=== PATIENT | male | born 1975 | race Caucasian/White ===

== ENCOUNTER → 2018-07-19 12:16 | Outpatient (CLI) | payer OTHER, SELFPAY ==
[2018-07-19 14:41] LABS: AST(SGOT) 17 U/L (15-37); Alanine Aminotransfer ALT/SGPT 38 U/L (16-61); Albumin, Serum 3.7 g/dL (3.2-5.0); Alkaline Phosphatase 110 U/L (45-117); Anion Gap 11 (5-15); BUN 16 mg/dL (7-18); Bilirubin, Direct 0.15 mg/dL (0.00-0.30); Chloride 101 mmol/L (98-107); Cholesterol 236 mg/dL (200); Creatinine, Serum 1.23 mg/dL (0.70-1.30); EST Glomerular Filtration Rate 68 mL/min (>60); Est Glom Filt Rate - Afr Amer 82 mL/min (>60); Globulin 4.1 g/dL (2.2-4.2); Glucose 289 mg/dL (74-106); High Density Lipoprotein 51 mg/dL; Protein, Total 7.8 g/dL (6.4-8.2); Sodium Level 133 mmol/L (136-145); Thyroid Stim Hormone (TSH) 1.27 uIU/mL (0.358-3.74); Triglycerides 170 mg/dL; Very Low Density Lipoprotein 34 mg/dL (5-40)
--- OUTSIDE RECORDS SUMMARY | 2018-09-04 07:24 | XMS RPT_ITS ---
:1975 Author Organization [facility] Care Team Providers Name Role Phone Chalino Segovia Attending Unavailable Chalino Segovia Primary Care Unavailable PROBLEMS PROBLEMS No Problem Records FoundPROCEDURES PROCEDURES No Procedure Records FoundRESULTS RESULTS TESTOSTERONE, SERUM TOTAL Collected: 07/19/2018 Status: F Source: [place] 12:19 PM [facility] REPOSITORY TYPE CODE TESTS RESULT OUT OF REFERENCE UNITS RANGE LAB L509.3000 ng/dL Testosterone Normal 217.02 Result Comment: NORMAL REFERENCE RANGES MALE AGE <50 123.06 - 813.86 ng/dL MALE AGE >50 89.98 - 780.10 ng/dL FEMALE PREMENOPAUSE AGE 21 - 60 9.01 - 47.94 ng/dL FEMALE POSTMENOPAUSE AGE 45 - 89 <7.00 - 45.62 ng/dL REFERENCE RANGE AND METHODOLOGY CHANGED 07/26/2017 Performed By: #### L509.3000 #### [facility] [place], [address] BASIC METABOLIC Collected: 07/19/2018 Status: F Source: [place] PROFILE (BMP) 12:19 PM [facility] REPOSITORY TYPE CODE TESTS RESULT OUT OF RANGE REFERENCE UNITS LAB L501.0100 74-106 mg/dL High GLU 289 Result Comment: Glucose result greater than or equal to 200 mg/dL suggests DIABETES MELLITUS per A.D.A. criteria. Please note revised GLUCOSE reference range effective 2017. LAB L501.1000 7-18 mg/dL Normal BUN 16 LAB L501.1100 0.70-1.30 mg/dL Normal CREAT,SERUM 1.23 Result Comment: The validity of the calculated GFR AND GFRAA in patients over 70 years has not been determined. Clinical correlation is essential. LAB L501.1110 >60 mL/min Normal EST GFR 68 Result Comment: Non- GFR Calc LAB L501.1115 >60 mL/min Normal EST GFR - AA 82 Result Comment: GFR Calc LAB L501.1300 10-20 RATIO Normal BUN/CRE 13.0 LAB L501.2200 8.5-10.1 mg/dL CA Normal 9.0 LAB L501.5300 136-145 mmol/L Low NA 133 LAB L501.5600 3.5-5.1 mmol/L K Normal 4.0 LAB L501.5900 98-107 mmol/L CL Normal 101 LAB L501.6100 21.0-32.0 mmol/L Normal CO2 21.0 LAB L501.6200 5-15 Normal GAP 11 Performed By: #### L500.2500, L500.3400, L500.4100, L501.9520 #### [facility] [address] [place], [place], [id number] LIVER PROFILE Collected: 07/19/2018 Status: F Source: [place] 12:19 PM [facility] REPOSITORY TYPE CODE TESTS RESULT OUT OF RANGE REFERENCE UNITS LAB L501.1500 6.4-8.2 g/dL Normal T PROT 7.8 LAB L501.1800 3.2-5.0 g/dL Normal ALB 3.7 LAB L501.1950 2.2-4.2 g/dL Normal GLOB 4.1 LAB L501.4100 15-37 U/L Normal AST 17 LAB L501.4305 45-117 U/L Normal ALK P 110 LAB L501.4405 16-61 U/L Normal ALT 38 LAB L501.4600 0.20-1.00 mg/dL Normal T BILI 0.70 LAB L501.4700 0.00-0.30 mg/dL Normal D BILI 0.15 Performed By: #### L500.2500, L500.3400, L500.4100, L501.9520 #### [facility] [address] [facility] [place], [address] LIPID PROFILE Collected: 07/19/2018 Status: F Source: [place] 12:19 PM [facility] REPOSITORY TYPE CODE TESTS RESULT OUT OF RANGE REFERENCE UNITS LAB L501.4900 200 mg/dL High CHOL 236 Result Comment: <200 mg/dL Desirable 200-240 mg/dL Borderline >240 mg/dL High Risk LAB L501.5000 mg/dL Normal TRIG 170 Result Comment: The drugs N-Acetylcysteine and Metamizole may falsely depress this assay. Serum Triglycerides Reference Interval Normal <150 mg/dL Borderline high 150 - 199 mg/dL High 200 - 499 mg/dL Very High > or = 500 mg/dL LAB L501.6400 mg/dL Normal HDL 51 Result Comment: The drugs N-Acetylcysteine and Metamizole may falsely depress this assay. Reference Range HDL <40 mg/dL Low HDL Cholesterol HDL >or= 60 mg/dL High HDL Cholesterol LAB L501.6500 0-130 mg/dL High LDL 151 LAB L501.6600 5-40 mg/dL Normal VLDL 34 Performed By: #### L500.2500, L500.3400, L500.4100, L501.9520 #### [facility] [address] [facility] [place], [address] THYROID STIM HORMONE Collected: 07/19/2018 Status: F Source: [place] (TSH) 12:19 PM [facility] REPOSITORY TYPE CODE TESTS RESULT OUT OF RANGE REFERENCE UNITS LAB L501.9520 0.358-3.74 uIU/mL Normal TSH 1.27 Performed By: #### L500.2500, L500.3400, L500.4100, L501.9520 #### [facility] [address] [facility] [place] [place], [address] ALLERGIES ALLERGIES No Allergies Records FoundENCOUNTERS ENCOUNTERS ADMIT/DISCHARGE ACCOUNT ADMITTING ENCOUNTER LOCATION SOURCE NUMBER CLASS 07/19/2018 [id number] Ambulatory [address] ing:MFPLAB Repository PAYERS PAYERS ENCOUNTER GUARANTOR PAYER SUBSCRIBER SOURCE 07/19/2018 MARBELLA WALKER1985 Primary Insurance:[facility] MARBELLA ESPINAL: [place] KRISTEL MCCRAY, *DO NOT USE*Policy [id number] [facility] [address]Fgm: Number: [facility] [id number] Repository (HP) Date:[id number] [address]KN: 07/19/2018 Secondary NOT GIVENUNK [place] Insurance:SELF PAY [facility] Number: Effective Repository Date:2018-07-19
== END ==
PROVIDERS: Family Provider Family Medicine; PCP Family Medicine; Visit Provider Family Medicine
DX: E11.9 Type 2 diabetes mellitus without complications (principal); N52.9 Male erectile dysfunction, unspecified
CPT/HCPCS: 36415; 80048; 80061; 80076; 84403; 84443

== ENCOUNTER → 2018-10-17 12:12 | Outpatient (CLI) | payer OTHER, SELFPAY ==
[2018-10-17 15:06] LABS: Anion Gap 10 (5-15); BUN 17 mg/dL (7-18); BUN/Creat Ratio 15.6 RATIO (10-20); Calcium,Total 9.1 mg/dL (8.5-10.1); Chloride 102 mmol/L (98-107); Creatinine, Serum 1.09 mg/dL (0.70-1.30); EST Glomerular Filtration Rate 78 mL/min (>60); Est Glom Filt Rate - Afr Amer 94 mL/min (>60); Glucose 259 mg/dL (74-106); Sodium Level 135 mmol/L (136-145)
== END ==
PROVIDERS: Family Provider Family Medicine; PCP Family Medicine; Referring Provider Family Medicine; Visit Provider Family Medicine
DX: E11.9 Type 2 diabetes mellitus without complications (principal)
CPT/HCPCS: 36415; 80048

== ENCOUNTER 2021-02-09 20:48 | Inpatient (IN) | payer OTHER, SELFPAY ==
[2021-02-09 20:49] VITALS: BP 200/129; PULSE 115; RESP 18; TEMP 37.1; O2SAT 95; BMI 27.9
[2021-02-09 20:58] VITALS: BP 217/127; PULSE 107; RESP 20; BMI 27.9
[2021-02-09 21:25] LABS: Bedside Glucose 322 mg/dL (70-110)
--- NOTE | 2021-02-09 21:29 | EKG12_ITS ---
Test Reason : CP Blood Pressure : / mmHG Vent. Rate : 102 BPM Atrial Rate : 102 BPM P-R Int : 154 ms QRS Dur : 102 ms QT Int : 340 ms P-R-T Axes : 046 -01 012 degrees QTc Int : 443 ms Sinus tachycardia Otherwise normal ECG Confirmed by MUSTAPHA NASCIMENTO, DOTTY ([id number]), book editor SWATHI BAILEY ([id number]) on 02/15/2021 4:19:54 PM Referred By: ANAHY Confirmed By:DOTTY LUCIANO MD
--- NOTE | 2021-02-09 21:29 | CT_ITS ---
STUDY: CT BRAIN WITHOUT CONTRAST REASON FOR EXAM: Male, 45 years old. left side weakness, paraesthesias RADIATION DOSAGE (If Supplied By Facility): CTDIvol = ( 44.99 ) mGy, DLP = ( 796.11 ) mGycm TECHNIQUE: Transaxial CT imaging of the brain was performed without administration of intravenous contrast material. Individualized dose optimization techniques were used for this CT. COMPARISON: No relevant priors. FINDINGS: Normal soft tissue structures. Normal calvarium. Several well-defined small areas of hypodensity in the right basal ganglia. Possibly related to prior stroke however, age indeterminate. There is no intracranial hemorrhage. Normal visualized paranasal sinuses. CT/Brain/Head without Contrast IMPRESSION: Small hypodensities in the right basal ganglia. Age indeterminant. If there is ongoing clinical concern for acute stroke, recommend MRI brain. Electronically Signed: Spencer Ramirez DO at 22:22 EDT Tel , Service support ,
--- NOTE | 2021-02-09 21:31 | EX.ED.DYSGE1 ---
HPI History of Present Illness Chief Complaint: Neuro S/Sx Detail of Chief Complaint: Left-sided weakness and paresthesias x5 days Informant: patient Narrative Narrative: Patient presents to the emergency department with multiple complaints today. Patient states that he woke up with paresthesias in his left hand and weakness in his left arm and left leg causing him to feel off balance. Patient denies any falls or head injuries. He denies headache. Patient has been drinking alcohol today and drinks daily. Patient normally drinks beer. He denies headache or neck pain. He denies any falls or head injuries. He denies fever or recent illness. Patient has history of diabetes, hypertension, high cholesterol. Prior similar symptoms: [facility] Medical History (Updated 02/09/21 @ 22:[address] Leela Del Rio, ) Alcohol abuse Diabetes Hypercholesteremia Hypertension Allergy/AdvReac Type Severity Reaction Status Date / Time Penicillins Allergy Other Verified 02/09/21 20:51 Social History Smoking Status: Never smoker ROS [facility] ED Constitutional Constitutional ED: Reports systems reviewed and no addt'l complaints, except as documented; Denies body ache(s), change in weight or chills Eyes Eyes: Denies acute decrease in peripheral vision, change in vision, double vision or loss of vision ENT ENT ED: Reports none; Denies ear pain, lip swelling, loss taste/smell, neck pain, otalgia or sore throat Cardiovascular Cardiovascular: Reports none and chest pain; Denies abdominal pain, chest pain with activity, leg edema, lightheadedness, palpitations, rapid heart rate or syncope Respiratory/Chest Respiratory/Chest: Reports none; Denies change in mental status, dry cough, dyspnea, hemoptysis, shortness of breath at rest or shortness of breath with exertion Gastrointestinal Gastrointestinal: Reports none; Denies abdominal pain, change in stool character, diarrhea, hematemesis, hematochezia, melena, rectal bleeding or vomiting Genitourinary Genitourinary ED: Reports none; Denies abdominal discomfort, anuria, dysuria, genital pain or polyuria Musculoskeletal Musculoskeletal: Reports none; Denies arthralgias, back pain, difficulty walking, extremity pain, muscle weakness or myalgias Integumentary Reports none; Denies abscess or rash Neurologic Neurologic: Reports none and other Details: Left leg weakness and left arm paresthesias ; Denies abnormal gait, confusion, focal weakness, frequent falls, headache(s), loss of vision, numbness, paresthesias, radicular pain, vertigo or weakness Psychiatric Psychiatric: Reports systems reviewed and no addt'l complaints, except as documented and none; Denies behavioral changes, confusion, difficulty concentrating, hallucinations, suicidal ideation, tactile hallucinations or visual hallucinations Endocrine Endocrinology: Denies none, cold intolerance, excessive sweating, fatigue or heat intolerance Hematologic/Lymphatic Hematologic/Lymphatic: Reports none; Denies anemia, easy bleeding or easy bruising Allergic/Immunologic Allergic/Immunologic ED: Denies as per HPI, none, lip swelling, mouth swelling, throat swelling, tongue swelling or hives EXAM Physical Exam Const Vital Signs: 02/09/21 20:49 02/09/21 20:58 02/09/21 21:53 Temperature 98.7 F Temperature Source Temporal Pulse Rate 115 H 107 H 105 H Respiratory Rate 18 20 H 20 H Blood Pressure 200/129 H 217/127 H 205/146 H Blood Pressure Mean 152 157 165 Pulse Ox 95 99 Oxygen Delivery Method Room Air Room Air Positive well nourished and well developed General Appearance ED: well developed and NAD HEENT Reports TM's clear and moist mucous membranes normocephalic and atraumatic; Negative for trauma or tenderness Tympanic Membrane ED: Yes TM's clear Eyes PERRL and EOMs intact bilaterally General Eye ED: Negative for pale conjunctiva or scleral icterus Neck no lymphadenopathy, supple and no JVD General: Negative for tenderness Chest Wall inspection of chest normal and palpation of chest normal Chest: Negative for tenderness Resp normal respiratory effort and clear to auscultation bilaterally Effort and Inspection: Negative for respiratory distress or pain with movement Auscultation: Negative for rhonchi, wheezes or diminished lung sounds Cardio regular rate, regular rhythm, S1 normal heart sound, S2 normal heart sound and no murmurs Peripheral Pulses: pulses 2+ throughout GI normal to inspection, nondistended, normoactive bowel sounds, soft to palpation, non-tender, non-distended and no masses Back/Spine no CVA tenderness and no thoracic nor lumbar tenderness Extremity normal to inspection General Extremety ED: Negative for edema General Extremity: Negative for edema Neuro oriented x3, CN's II-XII intact bilaterally, no sensory deficits noted and gait normal Neuro Narrative: No focal weakness noted. He does seem to have some ataxia with his left hand as well as with the left leg. Sensorium / Orientation: awake, alert, oriented to person, oriented to place and oriented to time Motor Exam: strength 5/5 throughout and strength abnormal Psych mental status grossly normal Skin no rashes or lesions noted and no wounds MDM MDM MDM Narrative Medical decision making narrative: Patient received labetalol on arrival. CT scan of the brain showed small hypodensities in the right basal ganglia and recommended MRI for further evaluation of stroke. Patient not a thrombolytic candidate as he is 5 days into symptom onset. Case will be discussed with hospitalist evaluate for admission. Patient has been noncompliant with antihypertensives. He has not seen a doctor for several years and does not manage his blood glucose. Lab Data Attestation: I reviewed the patient's lab results. Labs: Laboratory Results - last 24 hr 02/09/21 02/09/21 02/09/21 21:05 21:05 21:05 WBC 8.3 RBC 4.98 Hgb 15.8 Hct 44.8 MCV 90.0 MCH 31.7 MCHC 35.3 RDW Std Deviation 39.6 RDW Coeff of Lovely 12.0 Plt Count 318 MPV 10.2 Immature Gran % (Auto) 0.500 Neut % (Auto) 62.5 Lymph % (Auto) 26.0 [place] % (Auto) 8.3 Eos % (Auto) 1.2 Baso % (Auto) 1.5 H Absolute Neuts (auto) 5.2 Absolute Lymphs (auto) 2.15 Nucleated RBC % 0 D-Dimer Quant (PE/DVT) 0.41 Sodium 135 L Potassium 3.5 Chloride 103 Carbon Dioxide 23.0 Anion Gap 9 BUN 11 Creatinine 1.43 H Estim Creat Clear Calc 72.17 Est GFR (MDRD) Af Amer 68 Est GFR (MDRD) Non-Af 56 L BUN/Creatinine Ratio 7.7 L Glucose 308 H Calcium 8.8 Total Bilirubin 0.50 AST 41 H ALT 69 H Alkaline Phosphatase 118 H Troponin I High Sens 11.3 Total Protein 7.1 Albumin 3.2 Globulin 3.9 Albumin/Globulin Ratio 0.8 L Ethyl Alcohol POC Glucose 02/09/21 02/09/21 21:05 21:17 WBC RBC Hgb Hct MCV MCH MCHC RDW Std Deviation RDW Coeff of Lovely Plt Count MPV Immature Gran % (Auto) Neut % (Auto) Lymph % (Auto) [place] % (Auto) Eos % (Auto) Baso % (Auto) Absolute Neuts (auto) Absolute Lymphs (auto) Nucleated RBC % D-Dimer Quant (PE/DVT) Sodium Potassium Chloride Carbon Dioxide Anion Gap BUN Creatinine Estim Creat Clear Calc Est GFR (MDRD) Af Amer Est GFR (MDRD) Non-Af BUN/Creatinine Ratio Glucose Calcium Total Bilirubin AST ALT Alkaline Phosphatase Troponin I High Sens Total Protein Albumin Globulin Albumin/Globulin Ratio Ethyl Alcohol 156.0 POC Glucose 322 H Radiography Chest X-Ray - ED: 1 View Diagnostic Testing: Radiology Impression Brain CT 02/09/21 21:29 IMPRESSION: Small hypodensities in the right basal ganglia. Age indeterminant. If there is ongoing clinical concern for acute stroke, recommend MRI brain. Electronically Signed: Spencer Ramirez DO at 22:22 EDT Tel , Service support , Chest X-Ray 02/09/21 21:58 IMPRESSION: Normal x-ray examination of the chest. Electronically Signed: Spencer Ramirez DO at 22:20 EDT Tel , Service support , 1 view chest x-ray interpreted by myself as no acute disease process. Radiology in agreement. EKG Initial EKG: Comments: Sinus rhythm with a ventricular rate of 102 bpm with no acute ST segment changes. Discharge Plan Triage Chief Complaint: Neuro S/Sx ED Provider: Leela Del Rio Dx/Rx/DC Orders Clinical Impression: CVA (cerebral vascular accident), Hypertension, uncontrolled, Acute hyperglycemia, Alcohol intoxication Primary Care Provider: Care Physician,No Primary Referrals: Care Physician,No Primary [Primary Care Provider] - Disposition Disposition: [facility]
[2021-02-09 21:48] LABS: Absolute Lymphocyte Count 2.15 X10^3/uL (0.83-4.51); Absolute Neutrophil Count 5.2 X10^3/uL (2.0-7.7); Basophil# 0.12 X10^3/uL; Basophil% 1.5 % (0-1); Eosinophils% 1.2 % (0-5); Hematocrit 44.8 % (40-54); Hemoglobin 15.8 g/dL (13.0-16.5); Lymphocyte # 2.15 X10^3/ul (0.83-4.51); Mean Corp Hgb Conc 35.3 g/dL (32-36); Mean Corpuscular Hgb 31.7 pg (27.0-32.0); Mean Platelet Vol. 10.2 fl (6.2-12.0); Monocyte# 0.69 X10^3/uL; Monocyte% 8.3 % (0-10); NRBC Flagged by Analyzer 0 % (0-5); Neutrophil # 5.17 X10^3/uL (2.7-7.7); Neutrophil % 62.5 % (47-70); Platelet Count 318 K/mm3 (150-450); RBC Distribution Width SD 39.6 fl (35.1-43.9); Red Blood Count 4.98 M/mm3 (4.6-6.2); White Blood Count 8.3 K/mm3 (4.4-11.0)
[2021-02-09] MEDS: Labetalol (Prefilled) 20 MG/4 ML IV (21:51)
[2021-02-09] MEDS: 0.9% Normal Saline 1,000 ML 150 ML IV (21:52)
[2021-02-09 21:53] VITALS: BP 205/146; PULSE 105; RESP 20; O2SAT 99
[2021-02-09 21:57] LABS: D-Dimer Quantitative (DVT/PE) 0.41 FEU/ug/m (0.27-0.49)
--- NOTE | 2021-02-09 21:58 | RAD_ITS ---
STUDY: X-RAY CHEST REASON FOR EXAM: Male, 45 years old. chest pain TECHNIQUE: Single AP portable view of the chest. COMPARISON: None. FINDINGS: The lungs are clear and expanded. There is no demonstrated pleural abnormality. Normal size heart. Normal mediastinum and nkechi. Normal visualized pulmonary arteries. Normal visualized aortic arch and descending thoracic aorta. Normal visualized thoracic spine. Normal visualized ribs, clavicles, and shoulders. There is no demonstrated abnormality of the visualized soft tissue structures of the upper abdomen. RAD/Chest 1 View (Portable) IMPRESSION: Normal x-ray examination of the chest. Electronically Signed: Spencer Ramirez DO at 22:20 EDT Tel , Service support ,
[2021-02-09 22:06] LABS: ALB/GLOB Ratio 0.8 RATIO (0.9-2.4); AST(SGOT) 41 U/L (15-37); Alanine Aminotransfer ALT/SGPT 69 U/L (16-61); Albumin, Serum 3.2 g/dL (3.2-5.0); Alkaline Phosphatase 118 U/L (45-117); Anion Gap 9 (5-15); BUN 11 mg/dL (7-18); BUN/Creat Ratio 7.7 RATIO (10-20); Calcium,Total 8.8 mg/dL (8.5-10.1); Chloride 103 mmol/L (98-107); Creatinine, Serum 1.43 mg/dL (0.70-1.30); EST Glomerular Filtration Rate 56 mL/min (>60); Est Glom Filt Rate - Afr Amer 68 mL/min (>60); Estimated Creatinine Clearance 72.17 ml/min; Globulin 3.9 g/dL (2.2-4.2); Glucose 308 mg/dL (74-106); Potassium 3.5 mmol/L (3.5-5.1); Protein, Total 7.1 g/dL (6.4-8.2); Sodium Level 135 mmol/L (136-145); Troponin-I HS 11.3 pg/mL (3.0-78.5)
[2021-02-09] MEDS: Labetalol 100 MG/20 ML Vial 20 MG IV (23:11)
[2021-02-09 23:14] VITALS: BP 182/102; PULSE 93; RESP 24; O2SAT 95
--- NOTE | 2021-02-09 23:18 | HP.PCM.HOS_ITS ---
HPI - General General Date of Admission: 02/09/21 HPI Narrative MARBELLA WALKER, is a 45 M with a significant history of hypertension; type 2 diabetes mellitus; and hyperlipidemia who presents with 5-day history of numbness at the fingertips of his left hand. Reportedly he is unable to open c ans with his left hand. Associated with symptoms and is weakness of the left upper extremity and left lower extremity. His symptoms has been persistent. He reports disequilibrium. Although he is a drinker he does not attribute his disequilibrium to drinking as when his symptoms started he was not drinking. Yet last time he drank was about few hours prior to presentation. He used to follow-up with Dr. Segovia, PCP for management of his chronic conditions. However it has been a long time since he saw Dr. Segovia. [facility] Medical History Alcohol abuse Diabetes Hypercholesteremia Hypertension Allergy/AdvReac Type Severity Reaction Status Date / Time Penicillins Allergy Other Verified 02/09/21 20:51 Family History Mother Heart disease Hypertension CVA (cerebral vascular accident) Father Glaucoma Other Alcoholism Surgical History History of tonsillectomy Social History Smoking Status: Current every day smoker tobacco type: smokeless tobacco Smokeless tobacco user: chewing tobacco alcohol intake: current details: Heavy drinker ROS ROS Narrative 12 point review of system is negative except as stated in HPI. Vital Signs Vital Signs Vital Signs: 02/09/21 20:49 02/09/21 20:58 02/09/21 21:53 Temperature 98.7 F Temperature Source Temporal Pulse Rate 115 H 107 H 105 H Respiratory Rate 18 20 H 20 H Blood Pressure 200/129 H 217/127 H 205/146 H Blood Pressure Mean 152 157 165 Pulse Ox 95 99 Oxygen Delivery Method Room Air Room Air 02/09/21 23:14 Temperature Temperature Source Pulse Rate 93 Respiratory Rate 24 H Blood Pressure 182/102 H Blood Pressure Mean 128 Pulse Ox 95 Oxygen Delivery Method Room Air Weight Weight: 96.1 kg Body Mass Index (BMI) 27.9 Physical Exam Narrative Physical exam: General: Well-nourished, well-developed, no acute distress Head: Normocephalic, atraumatic, no tenderness Eyes: PERRLA, EOMI ENT, no trauma, moist mucous membranes, no rhinorrhea Neck: Nontender, full range of motion, no spinal tenderness, deformities, step- off CVS: Tachycardia; S1-S2 present. Respiratory no acute distress, clear to auscultation bilaterally, chest wall nontender, no wheezing Abdomen: Soft, nontender, nondistended, normal bowel sounds, no masses : Deferred Extremities: Nontender full range of motion, no trauma Skin: Normal color, no trauma, abrasions Neuro: Alert, oriented, cranial nerves II through XII grossly intact. Deep tendon reflexes 2/4 throughout. Strength 5 out of 5 in all extremities. Dysmetria with ryascc-qc-nyax test of the left hand. No dysmetria with loexmw-fv-[id number] test of the right extremity. Bilateral knee to gary test normal. Results Lab / Micro Data Result Diagrams: 02/09/21 21:05 02/09/21 21:05 Labs: Laboratory Results - last 24 hr 02/09/21 02/09/21 02/09/21 21:05 21:05 21:05 WBC 8.3 RBC 4.98 Hgb 15.8 Hct 44.8 MCV 90.0 MCH 31.7 MCHC 35.3 RDW Std Deviation 39.6 RDW Coeff of Lovely 12.0 Plt Count 318 MPV 10.2 Immature Gran % (Auto) 0.500 Neut % (Auto) 62.5 Lymph % (Auto) 26.0 [place] % (Auto) 8.3 Eos % (Auto) 1.2 Baso % (Auto) 1.5 H Absolute Neuts (auto) 5.2 Absolute Lymphs (auto) 2.15 Nucleated RBC % 0 D-Dimer Quant (PE/DVT) 0.41 Sodium 135 L Potassium 3.5 Chloride 103 Carbon Dioxide 23.0 Anion Gap 9 BUN 11 Creatinine 1.43 H Estim Creat Clear Calc 72.17 Est GFR (MDRD) Af Amer 68 Est GFR (MDRD) Non-Af 56 L BUN/Creatinine Ratio 7.7 L Glucose 308 H Calcium 8.8 Total Bilirubin 0.50 AST 41 H ALT 69 H Alkaline Phosphatase 118 H Troponin I High Sens 11.3 Total Protein 7.1 Albumin 3.2 Globulin 3.9 Albumin/Globulin Ratio 0.8 L Ethyl Alcohol POC Glucose 02/09/21 02/09/21 21:05 21:17 WBC RBC Hgb Hct MCV MCH MCHC RDW Std Deviation RDW Coeff of Lovely Plt Count MPV Immature Gran % (Auto) Neut % (Auto) Lymph % (Auto) [place] % (Auto) Eos % (Auto) Baso % (Auto) Absolute Neuts (auto) Absolute Lymphs (auto) Nucleated RBC % D-Dimer Quant (PE/DVT) Sodium Potassium Chloride Carbon Dioxide Anion Gap BUN Creatinine Estim Creat Clear Calc Est GFR (MDRD) Af Amer Est GFR (MDRD) Non-Af BUN/Creatinine Ratio Glucose Calcium Total Bilirubin AST ALT Alkaline Phosphatase Troponin I High Sens Total Protein Albumin Globulin Albumin/Globulin Ratio Ethyl Alcohol 156.0 POC Glucose 322 H Radiology Impression Brain CT 02/09/21 21:29 IMPRESSION: Small hypodensities in the right basal ganglia. Age indeterminant. If there is ongoing clinical concern for acute stroke, recommend MRI brain. Electronically Signed: Spencer Ramirez DO at 22:22 EDT Tel , Service support , Chest X-Ray 02/09/21 21:58 IMPRESSION: Normal x-ray examination of the chest. Electronically Signed: Spencer Ramirez DO at 22:20 EDT Tel , Service support , Assessment & Plan Assessment/Plan (1) CVA (cerebral vascular accident): (2) Hypertension, uncontrolled: (3) Acute hyperglycemia: (4) Alcohol intoxication: (5) SHANON (acute kidney injury): (6) Diabetes mellitus, type 2: PLAN: Acute CVA Serial NINDS NIH ordered CT of the head with small hypodensities in the right basal ganglia. Age indeterminant. -Check Hba1c, Lipid level Physical therapy, and occupational therapy to work with patient. N.p.o. until bedside swallow eval. Daily aspirin. High intensity statin Lipid profile and A1c ordered. Review of old records shows lipid panel was done on 07/19/2018. At that time cholesterol was 236; LDL cholesterol was 151; VLDL cholesterol was 34; HDL cholesterol was 51. Community records were reviewed without any significant lab findings other than as stated here. Patient is outside window of permissive hypertension. MRI/MRA of head; brain; and neck. Echocardiogram ordered. Diabetes mellitus with acute hyperglycemia Review of medical department labs showed glucose of 308 on presentation. Patient with hyperglycemia on presentation Reportedly previously he was on oral hypoglycemic medication which he has since stopped taking.. Basal insulin and prandial insulin ordered. Accu-Chek QA CHS with correction scale insulin ordered. Check A1c Hypertension urgency Max systolic blood pressure 217; max diastolic blood pressure 129 Received labetalol at the emergency department. Will start patient on metoprolol because of concomitant alcoholism with risk of withdrawal. As needed labetalol ordered. Blood pressure goal of 165 in the next 24 hours. Elevated liver enzymes Review of Emergency department labs showed AST of 41; and ALT of 69. AST and ALT is not in the pattern of 2 is to 1 as an alcoholism. Will get acute hepatitis panel. Other etiology includes fatty liver. Review of previous records showed normal AST and ALT. SHANON Review of emergency department labs showed a creatinine of 1.43. His creatinine in 2019 was 1.09 and in 2018 was 1.23. Probably mild SHANON. Gentle IV hydration ordered. Trend BMP. Alcohol abuse Reported drinks liquor and beer. Reportedly can drink 12 packs of beer. Reportedly he he can drink 7 days straight and he can stay up drink for about 7 days without any withdrawal. Alcohol level of 156 mg/dL on presentation. Reportedly drank about an hour or 2 before presentation. Will put on CIWA protocol with as needed Ativan. Thiamine; multivitamin and folic acid ordered. DVT prophylaxis: SCD ordered. Charges/Coding Visit Charges OBSV E&M: 32285 Initial observation care L3
[2021-02-09 23:38] VITALS: BP 193/130; PULSE 89; RESP 24; TEMP 37.1; O2SAT 95
--- NOTE | 2021-02-09 23:54 | ECHOD_ITS ---
Reason For Study: TIA/CVA Procedure This was a 2D Doppler, Color Flow transthoracic echocardiogram. Exam performed portable in patient room. Left Ventricle Normal LV size. Left ventricular systolic function is normal. The estimated ejection fraction is 60 %. No regional wall motion abnormalities noted. Right Ventricle Normal RV size. Normal systolic function. Atria Normal left atrium. Normal right atrium. Bubble contrast study negative for right to left interatrial shunt. Mitral Valve Normal mitral valve. Systolic anterior motion of the mitral valve. Tricuspid Valve Normal tricuspid valve. Aortic Valve Normal aortic valve. Trisinus/trileaflet aortic valve. Pulmonic Valve Normal pulmonic valve. Great Vessels Normal aortic root. The pulmonary artery is normal size. Normal inferior vena cava. Pericardium/Pleural No pericardial effusion. Medication Performed a rapid injection of agitated mix of 9 cc saline and 1cc air to assess for atrial septal defect. MMode/2D Measurements & Calculations LVIDd: 5.3 cm IVSd: 1.3 cm Ao root diam: 3.1 cm LVIDs: 3.7 cm LVPWd: 1.3 cm RVDd: 3.3 cm FS: 30.5 % LAV(MOD-bp): 43.5 ml LVAd ap4: 39.8 cm2 SV(MOD-sp4): 80.9 ml LAV(MOD-bp) Indexed: 19.8 ml/m2 LVLd ap4: 8.5 cm LAV(MOD-sp2): 46.7 ml EDV(MOD-sp4): 153.9 ml LAV(MOD-sp4): 38.7 ml EDV(sp4-el): 157.3 ml LVAs ap4: 25.1 cm2 LVLs ap4: 7.2 cm ESV(MOD-sp4): 73.0 ml ESV(sp4-el): 73.6 ml EF(MOD-sp4): 52.6 % EF(sp4-el): 53.2 % SV(sp4-el): 83.8 ml LA A4 area: 16.0 cm2 LA dimension(2D): 3.6 cm RA A4 area: 15.5 cm2 Time Measurements MV dec time: 0.21 sec Doppler Measurements & Calculations MV E max pollo: 64.8 cm/sec Lat Peak E' Pollo: 9.6 cm/sec Med Peak E' Pollo: 4.7 cm/sec MV A max pollo: 60.9 cm/sec E/E' lat: 6.8 E/E' med: 13.7 MV E/A: 1.1 Ao V2 max: 107.6 cm/sec LV V1 max: 79.2 cm/sec PA V2 max: 117.1 cm/sec Ao max P.6 mmHg LV V1 max P.5 mmHg ECHO/Echo Complete Interpretation Summary Normal LV size. Left ventricular systolic function is normal. The estimated ejection fraction is 60 %. Bubble contrast study negative for right to left interatrial shunt. Ordering Physician: Indra Mcfarland Performed By: Arelis Quick RDCS
[2021-02-09 23:55] VITALS: BMI 27.3
[2021-02-10] VITALS (16 sets, daily range): BP systolic 150–205; BP diastolic 89–129; PULSE 63–92; RESP 18–20; TEMP 36.2–36.9; O2SAT 96–100; BMI 27.3
[2021-02-10] MEDS: 0.9% Normal Saline 1,000 ML 100 ML IV (00:27)
[2021-02-10] MEDS: 0.9% Saline Lock 10 ML Syringe IV (00:27)
[2021-02-10] MEDS: Metoprolol Tartrate 25 MG Tablet PO ×2 (00:27→08:59)
[2021-02-10] MEDS: LORazepam 1 MG Tablet 2 MG PO (00:31)
[2021-02-10 00:51] LABS: Bedside Glucose 271 mg/dL (70-110)
[2021-02-10] MEDS: Labetalol (Prefilled) 20 MG/4 ML 10 MG IV (06:30)
[2021-02-10 06:41] LABS: Bedside Glucose 208 mg/dL (70-110)
[2021-02-10 06:59] LABS: Absolute Lymphocyte Count 2.09 X10^3/uL (0.83-4.51); Absolute Neutrophil Count 3.7 X10^3/uL (2.0-7.7); Basophil% 1.5 % (0-1); Eosinophil# 0.16 X10^3/uL; Eosinophils% 2.4 % (0-5); Hemoglobin 15.1 g/dL (13.0-16.5); Lymphocyte # 2.09 X10^3/ul (0.83-4.51); Lymphocyte % 30.9 % (19-41); Mean Corp Hgb Conc 34.3 g/dL (32-36); Mean Corpuscular Hgb 31.4 pg (27.0-32.0); Mean Corpuscular Volume 91.5 fL (80-94); Mean Platelet Vol. 10.5 fl (6.2-12.0); Monocyte# 0.68 X10^3/uL; NRBC Flagged by Analyzer 0 % (0-5); Neutrophil # 3.71 X10^3/uL (2.7-7.7); Neutrophil % 54.8 % (47-70); Platelet Count 276 K/mm3 (150-450); RBC Distribution Width CV 12.2 % (11.6-14.6); RBC Distribution Width SD 41.1 fl (35.1-43.9); Red Blood Count 4.81 M/mm3 (4.6-6.2); White Blood Count 6.8 K/mm3 (4.4-11.0)
[2021-02-10 07:50] LABS: Anion Gap 9 (5-15); BUN 10 mg/dL (7-18); BUN/Creat Ratio 9.1 RATIO (10-20); Calcium,Total 8.7 mg/dL (8.5-10.1); Chloride 107 mmol/L (98-107); Cholesterol 209 mg/dL (200); EST Glomerular Filtration Rate 76 mL/min (>60); Est Glom Filt Rate - Afr Amer 92 mL/min (>60); Estimated Creatinine Clearance 96.52 ml/min; Glucose 181 mg/dL (74-106); High Density Lipoprotein 65 mg/dL; Potassium 3.4 mmol/L (3.5-5.1); Sodium Level 139 mmol/L (136-145); Triglycerides 208 mg/dL; Very Low Density Lipoprotein 42 mg/dL (5-40)
[2021-02-10] MEDS: Aspirin 81 MG TAB.CHEW PO (08:59)
[2021-02-10] MEDS: Folic Acid 1 MG Tablet PO (08:59)
[2021-02-10] MEDS: Multivitamins,Ther W-Minerals Tablet 1 TABLET PO (08:59)
[2021-02-10] MEDS: Thiamine Hydrochloride 100 MG Tablet PO (08:59)
--- NOTE | 2021-02-10 09:00 | MRI_ITS ---
We are attempting to reach an attending provider to discuss findings. An addendum with communication details will be sent when the communication is complete. STUDY: MRI BRAIN WITHOUT CONTRAST REASON FOR EXAM: Male, 45 years old. CVA TECHNIQUE: Standardized multiplanar fat and water weighted pulse sequences were obtained. COMPARISON: CT 02/09/2021 FINDINGS: There is mild cerebral atrophy with widening of the extra-axial spaces and ventricular dilatation. Normal white matter tracts of the supratentorial brain. 1 cm oval hyperintensity of the inferior aspect of the right thalamus and extending into the lateral aspect of the right cerebral peduncle demonstrates restricted diffusion consistent with an acute infarct. Normal T2* images of the brain without demonstrated susceptibility artifact. There is no demonstrated hemosiderin stain. Normal bilateral basal ganglia. Normal thalami. There is no extra-axial fluid accumulation. Normal flow voids within the major intracranial circulation suggesting patency by spin echo criteria. Normal sella turcica, pituitary gland, infundibular stalk, optic chiasm and hypothalamus. Normal tectal plate and pineal gland. Normal midbrain, ted and medulla. Normal cerebellum. Normal basal cisterns. Normal bilateral temporal bones. Normal bilateral internal auditory canals. No demonstrated orbital abnormality, within the constraints of a routine brain study. Normal visualized paranasal sinuses. Normal calvarium and skull base. Normal visualized soft tissue structures. Normal visualized upper cervical spine. MRI/Brain without Contrast IMPRESSION: 1 cm acute infarct of the lateral aspect of the right cerebral peduncle extending superiorly towards the inferior aspect of the right thalamus. Electronically Signed: Ruperto Lewis MD at 12:28 EDT Tel , Service support ,
--- NOTE | 2021-02-10 09:00 | MRI_ITS ---
STUDY: MRA OF THE HEAD WITHOUT CONTRAST REASON FOR EXAM: Male, 45 years old. CVA TECHNIQUE: 3-D [id number] (TOF) imaging was performed with MIPs. The study was performed unenhanced. COMPARISON: None. FINDINGS: Normal bilateral petrous carotid arteries. Normal right cavernous carotid artery with a normal supraclinoid bifurcation. Normal left cavernous carotid artery with a normal supraclinoid bifurcation. Normal right A1 segments of the anterior cerebral artery. Normal left A1 segments of the anterior cerebral artery. Normal intact anterior communicating artery (ACOM). Normal bilateral A2 segments of the anterior cerebral arteries. Normal right M1 and M2 segments of the middle cerebral arteries, with a normal M1 bifurcation. Normal left M1 and M2 segments of the middle cerebral arteries, with a normal M1 bifurcation. Normal right posterior communicating artery (PCOM). There is non-visualization of the left posterior communicating artery (PCOM). Normal right vertebral artery. Nonvisualization the left vertebral artery which may be occluded or aplastic. Oormal basilar artery with a normal basilar bifurcation. Normal right superior cerebral artery. Nonvisualization the left superior cerebellar artery which may be occluded or aplastic. Normal bilateral P1, P2 and visualized P3 segments of the posterior cerebral arteries. There is no demonstrated aneurysm of the hopi of Reddy. There is no major vessel occlusion or hemodynamically significant stenosis. There is no demonstrated abnormality of the visualized brain. MRI/MRA Head ONLY without Contrast IMPRESSION: 1. No intracranial stenosis or aneurysm. 2. Nonvisualization the left vertebral artery which may be occluded or aplastic. 3. Nonvisualization left superior cerebellar artery which may be occluded or aplastic. Electronically Signed: Ruperto Lewis MD at 12:31 EDT Tel , Service support ,
--- NOTE | 2021-02-10 09:00 | MRI_ITS ---
STUDY: MRA NECK WITHOUT CONTRAST REASON FOR EXAM: Male, 45 years old. CVA TECHNIQUE: Source images were obtained, MIPs were performed. The study was performed unenhanced. COMPARISON: None. FINDINGS: RIGHT CAROTID ARTERIES: Normal right common carotid artery (CCA). Normal right common carotid bulb. Normal origin of the right internal carotid (ICA) artery without a hemodynamically significant stenosis. Normal visualized cervical portion of the right internal carotid artery. Normal origin of the right external carotid artery (ECA). LEFT CAROTID ARTERIES: Normal left common carotid artery (CCA). Normal left common carotid bulb. Normal origin of the left internal carotid (ICA) artery without a hemodynamically significant stenosis. Normal visualized cervical portion of the left internal carotid artery. Normal origin of the left external carotid artery (ECA). VERTEBRAL ARTERIES: Normal right vertebral artery. Nonvisualization left vertebral artery which may be occluded or aplastic. MRI/MRA Neck without Contrast IMPRESSION: 1. No carotid stenosis. 2. Nonvisualization of the left vertebral artery which may be occluded or aplastic. Electronically Signed: Ruperto Lewis MD at 12:32 EDT Tel , Service support ,
--- NOTE | 2021-02-10 10:06 | CASEMGMT ---
SW met w/pt in room to completed PHQ-9 and in regard to history of alcohol abuse. Pt scored a 2 on the PHQ-9, pt states symptoms related to what is going on medically, and denies any depressive symptoms at this time. In regard to alcohol use, pt states does drink a 12 pack a day at times, but can go days without drinking. Pt states he has not gone through withdrawal in the past. Pt does state that his alcohol use is impacting his life, and is interested in resources. SW explained will bring in local resources. If pt is not in the room, SW explained will leave information on the bedside table. SW did go back to speak w/pt and he is at MRI. SW left resources at the bedside for pt. BEULAH Joseph
[2021-02-10 10:10] LABS: Hemoglobin A1c 9.2 % (3.8-5.6)
--- NOTE | 2021-02-10 11:54 | CASEMGMT ---
SW spoke w/pt again after the MRI in regard to prior level of care and anticipated discharge plan. also present in room. PCP: None. Pt plans to either start seeing Dr. Pitts, or if he is not in network, as per , pt has an germaine on his phone where he can look for in network providers Specialists: None Insurance: [facility] Living arrangements: Pt lives home w/, pt is fully independent with ADLs. No DME needed HHC/SNF: No history of SNF or HHC LW/POA: Pt has not completed these documents in the past, open to reviewing and completing at a later time. SW reviewed forms w/pt and , copies provided. Plan: Home Pt anticipates returning home at discharge, does not anticipate any homegoing needs. SW remains available should pt's discharge needs change. BEULAH Joseph
[2021-02-10 12:31] LABS: Bedside Glucose 203 mg/dL (70-110)
[2021-02-10] MEDS: Insulin Lispro 100 UNIT/ML INSULN.PEN SC ×5 (12:56→17:40)
--- NOTE | 2021-02-10 13:10 | TELEMED_ITS ---
[facility] Telemed has confirmed receipt of a request for visit. This document confirms receipt of the order initiating the consult. To find the results of the consultation, please view the patient's reports for the scanned Telemed Consult.
--- NOTE | 2021-02-10 13:14 | PCM.PN.HOSP ---
Documented by User: Diana Santoyo NP, [employer]-C 02/10/21 13:24 Subjective Subjective Patient seen and examined. Denies significant left-sided weakness however continues to have ataxia. Patient with significant imbalance during ambulation. Denies new neurologic symptoms or focal deficits. Objective Data Objective Data Vital Signs: Vital Signs Temp Pulse Resp BP Pulse Ox 97.1 F L 66 20 H 158/90 H 96 02/10/21 06:20 02/10/21 08:59 02/10/21 06:20 02/10/21 06:55 02/10/21 07:22 Oxygen Delivery Method Room Air Weight: 213 lb 6.519 oz Body Mass Index (BMI) 27.3 Intake & Output: Intake and Output for Last 24 Hours 02/08/21 02/09/21 02/10/21 23:59 23:59 23:59 Intake Total 300 / 300 1005 / 1005 Output Total 0 / 0 Balance 300 / 300 1005 / 1005 Lab / Micro Data Result Diagrams: 02/10/21 06:10 02/10/21 06:10 Labs: Laboratory Results - last 24 hr 02/09/21 02/09/21 02/09/21 21:05 21:05 21:05 WBC 8.3 RBC 4.98 Hgb 15.8 Hct 44.8 MCV 90.0 MCH 31.7 MCHC 35.3 RDW Std Deviation 39.6 RDW Coeff of Lovely 12.0 Plt Count 318 MPV 10.2 Immature Gran % (Auto) 0.500 Neut % (Auto) 62.5 Lymph % (Auto) 26.0 [place] % (Auto) 8.3 Eos % (Auto) 1.2 Baso % (Auto) 1.5 H Absolute Neuts (auto) 5.2 Absolute Lymphs (auto) 2.15 Nucleated RBC % 0 D-Dimer Quant (PE/DVT) 0.41 Sodium 135 L Potassium 3.5 Chloride 103 Carbon Dioxide 23.0 Anion Gap 9 BUN 11 Creatinine 1.43 H Estim Creat Clear Calc 72.17 Est GFR (MDRD) Af Amer 68 Est GFR (MDRD) Non-Af 56 L BUN/Creatinine Ratio 7.7 L Glucose 308 H Hemoglobin A1c Calcium 8.8 Total Bilirubin 0.50 AST 41 H ALT 69 H Alkaline Phosphatase 118 H Troponin I High Sens 11.3 Total Protein 7.1 Albumin 3.2 Globulin 3.9 Albumin/Globulin Ratio 0.8 L Triglycerides Cholesterol LDL Cholesterol VLDL Cholesterol HDL Cholesterol Ethyl Alcohol POC Glucose 02/09/21 02/09/21 02/10/21 21:05 21:17 00:28 WBC RBC Hgb Hct MCV MCH MCHC RDW Std Deviation RDW Coeff of Lovely Plt Count MPV Immature Gran % (Auto) Neut % (Auto) Lymph % (Auto) [place] % (Auto) Eos % (Auto) Baso % (Auto) Absolute Neuts (auto) Absolute Lymphs (auto) Nucleated RBC % D-Dimer Quant (PE/DVT) Sodium Potassium Chloride Carbon Dioxide Anion Gap BUN Creatinine Estim Creat Clear Calc Est GFR (MDRD) Af Amer Est GFR (MDRD) Non-Af BUN/Creatinine Ratio Glucose Hemoglobin A1c Calcium Total Bilirubin AST ALT Alkaline Phosphatase Troponin I High Sens Total Protein Albumin Globulin Albumin/Globulin Ratio Triglycerides Cholesterol LDL Cholesterol VLDL Cholesterol HDL Cholesterol Ethyl Alcohol 156.0 POC Glucose 322 H 271 H 02/10/21 02/10/21 02/10/21 06:10 06:10 06:10 WBC 6.8 RBC 4.81 Hgb 15.1 Hct 44.0 MCV 91.5 MCH 31.4 MCHC 34.3 RDW Std Deviation 41.1 RDW Coeff of Lovely 12.2 Plt Count 276 MPV 10.5 Immature Gran % (Auto) 0.400 Neut % (Auto) 54.8 Lymph % (Auto) 30.9 [place] % (Auto) 10.0 Eos % (Auto) 2.4 Baso % (Auto) 1.5 H Absolute Neuts (auto) 3.7 Absolute Lymphs (auto) 2.09 Nucleated RBC % 0 D-Dimer Quant (PE/DVT) Sodium 139 Potassium 3.4 L Chloride 107 Carbon Dioxide 23.0 Anion Gap 9 BUN 10 Creatinine 1.10 Estim Creat Clear Calc 96.52 Est GFR (MDRD) Af Amer 92 Est GFR (MDRD) Non-Af 76 BUN/Creatinine Ratio 9.1 L Glucose 181 H Hemoglobin A1c 9.2 H Calcium 8.7 Total Bilirubin AST ALT Alkaline Phosphatase Troponin I High Sens Total Protein Albumin Globulin Albumin/Globulin Ratio Triglycerides 208 H Cholesterol 209 H LDL Cholesterol 102 VLDL Cholesterol 42 H HDL Cholesterol 65 Ethyl Alcohol POC Glucose 02/10/21 02/10/21 06:32 12:22 WBC RBC Hgb Hct MCV MCH MCHC RDW Std Deviation RDW Coeff of Lovely Plt Count MPV Immature Gran % (Auto) Neut % (Auto) Lymph % (Auto) [place] % (Auto) Eos % (Auto) Baso % (Auto) Absolute Neuts (auto) Absolute Lymphs (auto) Nucleated RBC % D-Dimer Quant (PE/DVT) Sodium Potassium Chloride Carbon Dioxide Anion Gap BUN Creatinine Estim Creat Clear Calc Est GFR (MDRD) Af Amer Est GFR (MDRD) Non-Af BUN/Creatinine Ratio Glucose Hemoglobin A1c Calcium Total Bilirubin AST ALT Alkaline Phosphatase Troponin I High Sens Total Protein Albumin Globulin Albumin/Globulin Ratio Triglycerides Cholesterol LDL Cholesterol VLDL Cholesterol HDL Cholesterol Ethyl Alcohol POC Glucose 208 H 203 H Radiography Diagnostic Testing: Radiology Impression Brain CT 02/09/21 21:29 IMPRESSION: Small hypodensities in the right basal ganglia. Age indeterminant. If there is ongoing clinical concern for acute stroke, recommend MRI brain. Electronically Signed: Spencer Ramirez DO at 22:22 EDT Tel , Service support , Chest X-Ray 02/09/21 21:58 IMPRESSION: Normal x-ray examination of the chest. Electronically Signed: Spencer Ramirez DO at 22:20 EDT Tel , Service support , Echocardiogram 02/09/21 23:54 Interpretation Summary Normal LV size. Left ventricular systolic function is normal. The estimated ejection fraction is 60 %. Bubble contrast study negative for right to left interatrial shunt. Ordering Physician: Indra Carr Performed By: Arelis Quick RDCS Brain MRI 02/10/21 09:00 IMPRESSION: 1 cm acute infarct of the lateral aspect of the right cerebral peduncle extending superiorly towards the inferior aspect of the right thalamus. Electronically Signed: Ruperto Lewis MD at 12:28 EDT Tel , Service support , ADDENDUM: 02/10/21 1259 IMPRESSION: 1 cm acute infarct of the lateral aspect of the right cerebral peduncle extending superiorly towards the inferior aspect of the right thalamus. N.B. : The above Results were Read Back by Ruperto Lewis MD to INDRA CARR and understanding confirmed on 02/10/2021 12:51:11 (ET). Electronically Signed: Ruperto Lewis MD at 12:28 EDT Tel , Service support , ADDENDUM: 02/10/21 1304 IMPRESSION: 1 cm acute infarct of the lateral aspect of the right cerebral peduncle extending superiorly towards the inferior aspect of the right thalamus. N.B. : The above Results were Read Back by Ruperto Lewis MD to Diana [id number], [employer], and understanding confirmed on 02/10/2021 12:57:26 (ET). Electronically Signed: Ruperto Lewis MD at 12:28 EDT Tel , Service support , Head MRA 02/10/21 09:00 IMPRESSION: 1. No intracranial stenosis or aneurysm. 2. Nonvisualization the left vertebral artery which may be occluded or aplastic. 3. Nonvisualization left superior cerebellar artery which may be occluded or aplastic. Electronically Signed: Ruperto Lewis MD at 12:31 EDT Tel , Service support , Neck MRA 02/10/21 09:00 IMPRESSION: 1. No carotid stenosis. 2. Nonvisualization of the left vertebral artery which may be occluded or aplastic. Electronically Signed: Ruperto Lewis MD at 12:32 EDT Tel , Service support , Physical Exam Const alert, oriented x3 and no apparent distress Orientation / Consciousness: awake, oriented to person, oriented to place and oriented to time HEENT normocephalic and moist oral mucous membranes Eyes PERRL, EOMs intact bilaterally and conjunctivae normal Neck no lymphadenopathy Resp normal respiratory effort and clear to auscultation bilaterally Cardio regular rate, regular rhythm and no murmurs Peripheral Pulses: pulses 2+ throughout GI normal to inspection, nondistended, normoactive bowel sounds, non-tender and non-distended Extremity normal to inspection Skin no rashes or lesions noted Lesions: no lesions Rashes: no rashes Trauma: no lacerations or abrasions Neuro CN's II-XII intact bilaterally, no focal motor deficits and deep tendon reflexes 2+ bilaterally Neuro Narrative: Left-sided ataxia and mild sensory deficits. Psych mental status grossly normal and affect normal Assessment & Plan Assessment/Plan (1) CVA (cerebral vascular accident): PLAN: 1. Acute CVA-MRI with right thalmic infarct. MRA of neck shows no carotid stenosis, nonvisualization of the left vertebral artery which may be occluded or aplastic. Echocardiogram with EF 60%, bubble contrast study negative. PT/OT/ST. Aspirin, statin. Add Plavix. Obtain SOC neurology consult. 2. Alcohol abuse- CIWA/Ativan protocol. Thiamine, folic acid, multivitamin supplementation. Not interested in RAMP program at this time however amenable to outpatient resources. 3. Hypokalemia-replace per protocol. Check mag. 4. SHANON- resolved. 5. Mild transaminitis-secondary to ETOH use. 6. Hypertension, uncontrolled-given symptom onset towards a few days ago, will initiate BP regimen. Initiated on metoprolol, lisinopril. As needed labetalol. 7. Hyperlipidemia- high dose statin. 8. Type 2 diabetes mellitus-does not appear to be on home regimen. Accu-Cheks with sliding scale insulin. Hemoglobin A1c 9.2%. Will need addition of oral/insulin regimen at discharge. DVT prophylaxis-Lovenox subcu This patient was seen by JUSTIN Jean under the supervision of Dr. Mcdowell. Documented by User: Dr. Ajith Mcdowell, 02/10/21 13:59 Subjective Subjective Denies any complaints. Objective Data Lab / Micro Data Result Diagrams: 02/10/21 06:10 02/10/21 06:10 Physical Exam Const alert and no apparent distress HEENT Head and Scalp: normocephalic Eyes PERRL and EOMs intact bilaterally Resp normal respiratory effort, no use of accessory muscles and clear to auscultation bilaterally Cardio regular rate, regular rhythm, S1 normal heart sound and S2 normal heart sound GI normal to inspection, nondistended, normoactive bowel sounds, soft to palpation, non-tender and non-distended Extremity normal to inspection and full ROM Skin no rashes or lesions noted Neuro CN's II-XII intact bilaterally and moves all extremities Neuro Narrative: Muscling 5-5 in the right upper and right lower extremity. 4-5 with ataxia in the left upper and left lower extremity. Sensorium / Orientation: awake and alert Assessment & Plan Assessment/Plan (1) CVA (cerebral vascular accident): PLAN: Patient seen and examined independently. Data reviewed. I agree with the above note by the nurse practitioner. 1. Acute CVA: Involving the right cerebral peduncle and as well as the right thalamus. Continue with aspirin, high intensity statin and clopidogrel. Echocardiogram was unremarkable. Neurology consultation pending. 2. Alcohol abuse: No evidence of any acute alcohol withdrawal at this time. Review of his MRI shows mild cerebral atrophy. This may be related with alcohol. On thiamine and folate. Charges/Coding Visit Charges Inpatient E&M: 72886 Subs Hosp L3
[2021-02-10 13:23] LABS: Magnesium 1.9 mg/dL (1.6-2.6)
--- NOTE | 2021-02-10 16:19 | PCM.DC ---
Discharge Instructions Diet Discharge Diet: Low fat / Low cholesterol and Carb Control Diet Activity Discharge Activity: Return to Normal Activity and Use Walker Dressing / Incision Call your doctor if you observe: Numbness or Tingling, Shortness of breath, Dizziness and Chest pain Follow Up Care Test Results: Test results from this visit will be discussed in further detail at your follow-up appointment, if applicable. Discharge Plan Admission Admit Date/Time: 02/10/21 13:54 Primary Reason for Your Visit: Stroke Attending Provider: Ajith Mcdowell Primary Care Provider: Care Physician,No Primary Instructions Additional Instructions / Restrictions: Call [facility] to schedule PT/OT. [phone] Discharge Orders/Prescriptions Prescriptions: New clopidogrel 75 mg Tablet 75 mg PO DAILY Qty: 21 RF: 0 lisinopril 10 mg Tablet 10 mg PO DAILY Qty: 30 RF: 0 aspirin 81 mg Tablet,Chewable 81 mg PO DAILY@0800 Qty: 30 RF: 0 atorvastatin 40 mg tablet 40 mg PO QHS Qty: 30 RF: 0 metformin 500 mg tablet extended release 24hr 500 mg PO BID Qty: 60 RF: 0 Other Ambulatory Orders: Glucometer (Routine) Location: None Selected Ordered By: Diana Santoyo NP Referrals / Follow Up: Chalino Segovia MD [STAFF PHYSICIAN] - In 1 Week Thom Brady MD [STAFF PHYSICIAN] - Within 2 Weeks Care Physician,No Primary [Primary Care Provider] - In 1 Week Disposition Disposition (needs filled in before D/C Order can be placed): Home, Self Care
--- NOTE | 2021-02-10 16:27 | CASEMGMT ---
Pt is being discharged today. Pt would benefit from outpt PT/OT. SW spoke w/pt, he is agreeable to referral to [facility], SW faxed referral and gave pt script, encouraged him to call if he does not hear from [facility] to make the appointments. SW also gave pt a current AA list that [facility] faxed over. Pt's made an appt for pt w/ [facility] as well. No further needs, pt home today. BEULAH Joseph
--- NOTE | 2021-02-10 16:32 | DS.PCM_ITS ---
Providers Date of Admission: 02/10/21 Date of Discharge: 02/10/21 Primary Care Physician: No Primary Care Phys Reason For Visit: ACUTE CVA Diagnosis Discharge Diagnosis (1) CVA (cerebral vascular accident): Status: Acute Code(s): I63.9 - Cerebral infarction, unspecified Medications at Discharge Home Medications aspirin 81 mg PO DAILY@0800 #30 tab 02/10/21 atorvastatin 40 mg PO QHS #30 tab 02/10/21 clopidogrel 75 mg PO DAILY #21 tab 02/10/21 lisinopril 10 mg PO DAILY #30 tab 02/10/21 metformin 500 mg PO BID #60 tab 02/10/21 Hospital Course Operations None Procedures 2-D Echocardiogram Summary of Care Provided Minutes Spent on Discharge: 35 Hospital Course: Patient is a 45-year-old male admitted 02/09/2021 due to num bness, tingling and ataxia. 1. Acute CVA-MRI with right thalamic infarct. MRA of neck shows no carotid stenosis, nonvisualization of the left vertebral artery which may be occluded or aplastic. Echocardiogram with EF 60%, bubble contrast study negative. Aspirin, statin, plavix. Continue dual antiplatelet therapy for 3 weeks. SOC neuro consult during admission. Follow up with neuro in two weeks. Patient declined rehab, therapies at [place]. 2. Alcohol abuse- Not interested in [facility] program at this time however amenable to outpatient resources. No evidence of withdrawal symptoms during admission. 3. Hypokalemia-replace per protocol. Magnesium normal. 4. SHANON- resolved. 5. Mild transaminitis-secondary to ETOH use. 6. Hypertension, uncontrolled-initiated on lisinopril 10mg daily. Continue home blood pressure monitoring with further outpatient adjustment as necessary. 7. Hyperlipidemia- initiated on statin. 8. Type 2 diabetes mellitus- not on home regimen. Hemoglobin A1c 9.2%. Metformin XR 500mg BID. RX for glucometer for continued monitoring and outpatient follow up. Physical Exam Const alert, oriented x3 and no apparent distress Orientation / Consciousness: awake, oriented to person, oriented to place and oriented to time HEENT normocephalic and moist oral mucous membranes Eyes PERRL, EOMs intact bilaterally and conjunctivae normal Neck no lymphadenopathy Resp normal respiratory effort and clear to auscultation bilaterally Cardio regular rate, regular rhythm and no murmurs Peripheral Pulses: pulses 2+ throughout GI normal to inspection, nondistended, normoactive bowel sounds, non-tender and non-distended Extremity normal to inspection Skin no rashes or lesions noted Lesions: no lesions Rashes: no rashes Trauma: no lacerations or abrasions Neuro CN's II-XII intact bilaterally, no focal motor deficits and deep tendon reflexes 2+ bilaterally Neuro Narrative: Left-sided ataxia and mild sensory deficits. Psych mental status grossly normal and affect normal Patient seen and examined prior to discharge. Physical assessment as noted above. Patient is stable for discharge with follow up recommendations as noted above. This patient was seen by JUSTIN Jean under the supervision of Dr. Mcdowell. Weight / BMI Weight Weight: 213 lb 6.519 oz Body Mass Index (BMI) 27.3 ABG / Lab / Microbiology Data Result Diagrams: 02/10/21 06:10 02/10/21 06:10 Laboratory: Laboratory Results - last 24 hr 02/09/21 02/09/21 02/09/21 21:05 21:05 21:05 WBC 8.3 RBC 4.98 Hgb 15.8 Hct 44.8 MCV 90.0 MCH 31.7 MCHC 35.3 RDW Std Deviation 39.6 RDW Coeff of Lovely 12.0 Plt Count 318 MPV 10.2 Immature Gran % (Auto) 0.500 Neut % (Auto) 62.5 Lymph % (Auto) 26.0 Lipscomb % (Auto) 8.3 Eos % (Auto) 1.2 Baso % (Auto) 1.5 H Absolute Neuts (auto) 5.2 Absolute Lymphs (auto) 2.15 Nucleated RBC % 0 D-Dimer Quant (PE/DVT) 0.41 Sodium 135 L Potassium 3.5 Chloride 103 Carbon Dioxide 23.0 Anion Gap 9 BUN 11 Creatinine 1.43 H Estim Creat Clear Calc 72.17 Est GFR (MDRD) Af Amer 68 Est GFR (MDRD) Non-Af 56 L BUN/Creatinine Ratio 7.7 L Glucose 308 H Hemoglobin A1c Calcium 8.8 Magnesium Total Bilirubin 0.50 AST 41 H ALT 69 H Alkaline Phosphatase 118 H Troponin I High Sens 11.3 Total Protein 7.1 Albumin 3.2 Globulin 3.9 Albumin/Globulin Ratio 0.8 L Triglycerides Cholesterol LDL Cholesterol VLDL Cholesterol HDL Cholesterol Ethyl Alcohol POC Glucose 02/09/21 02/09/21 02/10/21 21:05 21:17 00:28 WBC RBC Hgb Hct MCV MCH MCHC RDW Std Deviation RDW Coeff of Lovely Plt Count MPV Immature Gran % (Auto) Neut % (Auto) Lymph % (Auto) Lipscomb % (Auto) Eos % (Auto) Baso % (Auto) Absolute Neuts (auto) Absolute Lymphs (auto) Nucleated RBC % D-Dimer Quant (PE/DVT) Sodium Potassium Chloride Carbon Dioxide Anion Gap BUN Creatinine Estim Creat Clear Calc Est GFR (MDRD) Af Amer Est GFR (MDRD) Non-Af BUN/Creatinine Ratio Glucose Hemoglobin A1c Calcium Magnesium Total Bilirubin AST ALT Alkaline Phosphatase Troponin I High Sens Total Protein Albumin Globulin Albumin/Globulin Ratio Triglycerides Cholesterol LDL Cholesterol VLDL Cholesterol HDL Cholesterol Ethyl Alcohol 156.0 POC Glucose 322 H 271 H 02/10/21 02/10/21 02/10/21 06:10 06:10 06:10 WBC 6.8 RBC 4.81 Hgb 15.1 Hct 44.0 MCV 91.5 MCH 31.4 MCHC 34.3 RDW Std Deviation 41.1 RDW Coeff of Lovely 12.2 Plt Count 276 MPV 10.5 Immature Gran % (Auto) 0.400 Neut % (Auto) 54.8 Lymph % (Auto) 30.9 Lipscomb % (Auto) 10.0 Eos % (Auto) 2.4 Baso % (Auto) 1.5 H Absolute Neuts (auto) 3.7 Absolute Lymphs (auto) 2.09 Nucleated RBC % 0 D-Dimer Quant (PE/DVT) Sodium 139 Potassium 3.4 L Chloride 107 Carbon Dioxide 23.0 Anion Gap 9 BUN 10 Creatinine 1.10 Estim Creat Clear Calc 96.52 Est GFR (MDRD) Af Amer 92 Est GFR (MDRD) Non-Af 76 BUN/Creatinine Ratio 9.1 L Glucose 181 H Hemoglobin A1c 9.2 H Calcium 8.7 Magnesium Total Bilirubin AST ALT Alkaline Phosphatase Troponin I High Sens Total Protein Albumin Globulin Albumin/Globulin Ratio Triglycerides 208 H Cholesterol 209 H LDL Cholesterol 102 VLDL Cholesterol 42 H HDL Cholesterol 65 Ethyl Alcohol POC Glucose 02/10/21 02/10/21 02/10/21 06:10 06:32 12:22 WBC RBC Hgb Hct MCV MCH MCHC RDW Std Deviation RDW Coeff of Lovely Plt Count MPV Immature Gran % (Auto) Neut % (Auto) Lymph % (Auto) Lipscomb % (Auto) Eos % (Auto) Baso % (Auto) Absolute Neuts (auto) Absolute Lymphs (auto) Nucleated RBC % D-Dimer Quant (PE/DVT) Sodium Potassium Chloride Carbon Dioxide Anion Gap BUN Creatinine Estim Creat Clear Calc Est GFR (MDRD) Af Amer Est GFR (MDRD) Non-Af BUN/Creatinine Ratio Glucose Hemoglobin A1c Calcium Magnesium 1.9 Total Bilirubin AST ALT Alkaline Phosphatase Troponin I High Sens Total Protein Albumin Globulin Albumin/Globulin Ratio Triglycerides Cholesterol LDL Cholesterol VLDL Cholesterol HDL Cholesterol Ethyl Alcohol POC Glucose 208 H 203 H Radiography Diagnostic Testing: Radiology Impression Brain CT 02/09/21 21:29 IMPRESSION: Small hypodensities in the right basal ganglia. Age indeterminant. If there is ongoing clinical concern for acute stroke, recommend MRI brain. Electronically Signed: Spencer Ramirez DO at 22:22 EDT Tel , Service support , Chest X-Ray 02/09/21 21:58 IMPRESSION: Normal x-ray examination of the chest. Electronically Signed: Spencer Ramirez DO at 22:20 EDT Tel , Service support , Echocardiogram 02/09/21 23:54 Interpretation Summary Normal LV size. Left ventricular systolic function is normal. The estimated ejection fraction is 60 %. Bubble contrast study negative for right to left interatrial shunt. Ordering Physician: Indra Mcfarland Performed By: Arelis Quick RDCS Brain MRI 02/10/21 09:00 IMPRESSION: 1 cm acute infarct of the lateral aspect of the right cerebral peduncle extending superiorly towards the inferior aspect of the right thalamus. Electronically Signed: Ruperto Lewis MD at 12:28 EDT Tel , Service support , ADDENDUM: 02/10/21 1259 IMPRESSION: 1 cm acute infarct of the lateral aspect of the right cerebral peduncle extending superiorly towards the inferior aspect of the right thalamus. N.B. : The above Results were Read Back by Ruperto Lewis MD to INDRA BRUNO and understanding confirmed on 02/10/2021 12:51:11 (ET). Electronically Signed: Ruperto Lewis MD at 12:28 EDT Tel , Service support , ADDENDUM: 02/10/21 1304 IMPRESSION: 1 cm acute infarct of the lateral aspect of the right cerebral peduncle extending superiorly towards the inferior aspect of the right thalamus. N.B. : The above Results were Read Back by Ruperto Lewis MD to Diana [id number], [employer] SUPERVISOR, and understanding confirmed on 02/10/2021 12:57:26 (ET). Electronically Signed: Ruperto Lewis MD at 12:28 EDT Tel , Service support , Head MRA 02/10/21 09:00 IMPRESSION: 1. No intracranial stenosis or aneurysm. 2. Nonvisualization the left vertebral artery which may be occluded or aplastic. 3. Nonvisualization left superior cerebellar artery which may be occluded or aplastic. Electronically Signed: Ruperto Lewis MD at 12:31 EDT Tel , Service support , Neck MRA 02/10/21 09:00 IMPRESSION: 1. No carotid stenosis. 2. Nonvisualization of the left vertebral artery which may be occluded or aplastic. Electronically Signed: Ruperto Lewis MD at 12:32 EDT Tel , Service support , D/C Instructions Discharge Diet: Low fat / Low cholesterol and Carb Control Diet Call your doctor if you observe: Numbness or Tingling, Shortness of breath, Dizziness and Chest pain Meaningful Use Info Meaningful Use Diagnoses (Choose all that apply): Ischemic CVA CVA Therapy Assessed for PT,OT and/or ST?: Yes Ischemic Stroke Antithrombotic order at d/c?: Yes Dx of Atrial fib/flutter?: No Statins at discharge?: Yes Primary Dx Acute Ischemic CVA?: Yes IV tPA ordered during stay?: No Reason IV t-PA not ordered: Medical Contraindication Discharge Plan Admission Admit Date/Time: 02/10/21 13:54 Primary Reason for Your Visit: Stroke Attending Provider: Ajith Mcdowell Primary Care Provider: Care Physician,No Primary Instructions Additional Instructions / Restrictions: Call [facility] to schedule PT/OT. [phone] Discharge Orders/Prescriptions Prescriptions: New clopidogrel 75 mg Tablet 75 mg PO DAILY Qty: 21 RF: 0 lisinopril 10 mg Tablet 10 mg PO DAILY Qty: 30 RF: 0 aspirin 81 mg Tablet,Chewable 81 mg PO DAILY@0800 Qty: 30 RF: 0 atorvastatin 40 mg tablet 40 mg PO QHS Qty: 30 RF: 0 metformin 500 mg tablet extended release 24hr 500 mg PO BID Qty: 60 RF: 0 Other Ambulatory Orders: Glucometer (Routine) Location: None Selected Ordered By: Diana Santoyo NP Referrals / Follow Up: Chalino Segovia MD [STAFF PHYSICIAN] - In 1 Week Thom Brady MD [STAFF PHYSICIAN] - Within 2 Weeks Care Physician,No Primary [Primary Care Provider] - In 1 Week Disposition Disposition (needs filled in before D/C Order can be placed): Home, Self Care
[2021-02-10 17:10] LABS: Bedside Glucose 223 mg/dL (70-110)
[2021-02-11 08:09] LABS: HEPATITIS B SURFACE AG Negative (Negative); Hepatitis A IgM Antibody Negative (Negative); Hepatitis B Core AB IgM Negative (Negative)
[2021-02-11 14:13] LABS: Hep C Antibodies <0.1 s/co ratio (0.0-0.9)
== END 2021-02-10 18:10 | disposition home or self-care (01) | DRG 66 ==
LOC: ED 22:57 → PCU 23:16
PROVIDERS: Nurse Practitioner Family; Admitting Provider Hospitalist; Emergency Provider Emergency Medicine
DX: I63.9 Cerebral infarction, unspecified (principal); E87.6 Hypokalemia; I10 Essential (primary) hypertension; F17.220 Nicotine dependence, chewing tobacco, uncomplicated; I16.0 Hypertensive urgency; Y90.6 Blood alcohol level of 120-199 mg/100 ml; R27.0 Ataxia, unspecified; E78.5 Hyperlipidemia, unspecified; E11.65 Type 2 diabetes mellitus with hyperglycemia; R74.01 Elevation of levels of liver transaminase levels; F10.129 Alcohol abuse with intoxication, unspecified; Z91.14 Patient's other noncompliance with medication regimen; Z79.899 Other long term (current) drug therapy
CPT/HCPCS: 36415; 70450; 70544; 70547; 70551; 71045; 80048; 80053; 80061; 80074; 82077; 82962; 83036; 83735; 84484; 85025; 85379; 93005; 93306; 97162; 97166; 97802; 99285; 99406; J7030; A4216

== ENCOUNTER 2021-03-24 13:00 | Outpatient (RCR) | payer OTHER, SELFPAY ==
[2021-02-10 00:50] VITALS: BMI 27.3
--- NOTE | 2021-02-25 16:44 | HP.PTEVAL ---
Patient's Visit Information MARBELLA WALKER is a 45 year old M referred to Physical Therapy by Dr. Darin Adams MD with a diagnosis of CVA. Date of Evaluation: 02/25/21 Physical Therapist: Domenica Mcfadden DPT - Visit Plan Frequency: 2x /Week Duration: 4 Weeks Plan: Impulsive- focus on proprioception, coordination, endurance and functional mobility. HEP Given IE: toe taps for coordination and SLS with a counter - Subjective Symptoms started beginning of February- went to the doctor the following week. Sent him to stroke protocol- tingling in his hands and falling into stuff. Feels a lot better- but does not feel perfect. Still has issues with balance and endurance. When walking with his family he is now behind everyone and lagging- feels tired. Bilevel home- lots of stairs-family- and 3 kids (17, 11 and 4). 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 Needs to be able to stand, walk and carry objects. Feels that he is 65-70% back to normal. Sleep: he is napping throughout the day and also sleeping. He has not had any full falls but does veer into faust- falls left. Most of his weakness is on the left side. Fully I prior to stroke. He is fully I except for driving due to the diagnosis. Goals: get back to 100%. PMHx: DM (2007- quit meds 2009), Alcoholism, HTN, high cholesterol Meds: metformin, lisopril, asprin, statin- everything seems to be under control- A1C 9.0. - Objective Posture: FH, RS- can correct with verbal cues but does not maintain. Gait: impulsive- veers to the right when ambulating, no significant deviation noted but does have loss of balance throughout. Stairs: FAST and not controlled- uses handrail when asked to for safety- reciprocal pattern. HR/TR: able without UE A. SLS: unable but does weight shift- unable to SLS without A. Coordination: can toe tap but loses pattern after 15 seconds. Strength: Core: fair plus, LE: 5/5 throughout bilateral. Flex: HS: moderate, Gastroc: moderate. Balance: see FGA- Tandem Stance- unable to attain but once there can stand for 5 seconds. Eyes closed no foam: 30 sec with single episode of LOB. TUG: not performed due to safety concerns for increased speed and loss of balance - Balance/Special Test Scores Functional Gait Assessment Score: 20 % Disability: 33.3400 - Goals Goal 1:: Patient will be I with HEP and progression Goal Time Frame: 4-6 Weeks Goal 2:: Patient will improve FGA to WFL for his age Goal Time Frame: 4-6 Weeks Goal 3:: Patient will perform bilateral toe taps with consistent rhythm for 1 minutes Goal Time Frame: 4-6 Weeks Goal 4:: Patient will report ability to ambulate with family for more than 30 min and keep pace Goal Time Frame: 4-6 Weeks - Rehabilitation Potential Physical Therapy Diagnosis: Patient presents with hypomobility s/p CVA- he has decreased coordination, proprioception and endurance. Rehabilitation Potential: Good - Anticipated Interventions Patient/Client Instruction: Educate patient on: Benefits of Fitness Program Therapeutic Exercise to Include: Strength training, Endurance training, Balance training, Agility training, Postural training, Flexibilty training, Gait and locomotor training, Neuromotor development, Passive ROM, Active ROM, Dynamic Lumbar Stabilization, Scapular Strength/Stabilization For the Purpose of:: To improve muscle performance and motor function Functional Training to Include: ADL Training, Gait training Thank you for the opportunity to evaluate your patient. For Medicare and Medicare HMO plans, please review the plan of care and approve it. It will need to be FAXED BACK to us at [phone] for Medicare purposes. For Medicare only, by signing this I certify the plan of care. Please let me know if there are questions or concerns regarding this plan of care. Physician Signature: Date:
--- NOTE | 2021-03-02 10:10 | HP.OTEVAL ---
Patient's Visit Information MARBELLA WALKER is a 45 year old M, referred to Occupational Therapy by Dr. Darin Adams MD, with a diagnosis of CVA left UE weakness. Date of Evaluation: 02/25/21 Occupational Therapist: Cheryl Calvillo, GLORYR/Franci, CHT - Subjective This 45 year old male was seen for OT eval with dx of CVA and left side weakness. PT states he had a about 5 days of tingling in left. pt reports weakness in LE and difficulty with balance. Pt states he walks with his family in evenings and now has difficulty keeping up with family. pt states he works in the [employer] business- works for [employer] in [place]. pt states he has three children ages 17, 11 and 4 years old. pt would like to return to work as soon as possible. pt has increase concerns with his endurance, balance and FMS. - ADLs Dressing: Underwear, Pants Eating: Use silverware Bathing: Handle washcloth & soap Kitchen: Chop with knife Comments: pt states he now has SOB with going up and down the stairs or do daily tasks as quickly as he could. - ROM ROM Comments: pt demo full ROM of left UE - Strength Central Supply Supervisor: right 90# left 85# Lateral Pinch: right 14# left 10# Tripod Pinch: right 20# left 16# Tip-to-Tip Pinch: right 8# left 4# Strength Comments: pt demo with good functional strength no significate finding between right and left - Sensation Sensation Comments: pt report tingling/numbness has resolved - Nine Hole Peg Right: right 22.16 sec. Left: left 39.15 sec Comments: pt ataxic movement of left UE with this task - Stroke Specific Quality of Life Total SS-QOL Score: 186 - Goals Goal:: pt will demo a reduction in 9-hole peg testing to less than 27 sec. indicating increase in pts fine motor skills by d/c. pt will report he is independently performing meal prep without compensatory techniques 80% of the time. pt will demo a increase speed and fluid movement patterns with FMS with alternating bilateral hand skills 4/5 trials by d/c Goal:: pt will report ind with use of bilateral hands to fold laundry, perform chopping of fruits/veg. to increase ind with ADL and IADLs by d/c - Rehabilitation General Assessment: pt demo with left UE decrease coordination and dexterity of left hand following stroke. This has decreased pts ind. with ADLs and IADLs. pt would benefit from skilled OT services 2x week for 4-6 weeks. Today therapist ed. pt on FMS to increase his dexterity and coordination. pt demo understanding and agree to POC. Rehabilitation Potential: Excellent - Anticipated Interventions Strengthening, Fine Motor Coord/Abel, Neuro Reeducation - Visit Plan Frequency: 1-2x /Week Duration: 4 Weeks TEXT: Thank you for the opportunity to evaluate your patient. For Medicare and Medicare HMO plans, please review the plan of care and approve it. It will need to be FAXED BACK to us at [phone] for Medicare purposes. Please let me know if there are questions or concerns regarding this plan of care. Physician Signature: Date:
--- NOTE | 2021-06-07 08:31 | HP.PT.NRP ---
MARBELLA WALKER was seen in my office for initial evaluation on 02/25/21. The following Plan of Care was established for this patient: Initial Frequency: 2x /Week Initial Duration: 4 Weeks Patient/Client Instruction: Educate patient on: Benefits of Fitness Program Therapeutic Exercise to Include: Strength training, Endurance training, Balance training, Agility training, Postural training, Flexibilty training, Gait and locomotor training, Neuromotor development, Passive ROM, Active ROM, Dynamic Lumbar Stabilization, Scapular Strength/Stabilization For the Purpose of:: To improve muscle performance and motor function Functional Training to Include: ADL Training, Gait training This patient was last seen in our office . Pertinent comments regarding their Physical therapy will appear below: Patient has not attended PT in over 4 weeks and is appropriate for discharge- return to MD for further evaluation as needed. At this point I will be discontinuing this patient from physical therapy. I would be happy to see this patient again in the future if found appropriate by the physician. Thank you! YAHAIRA WardT Balance/Gait/Functional tests - Balance/Special Test Scores Functional Gait Assessment Score: 20 % Disability: 33.3400 Lower Extremity Functional Score: 23
== END 2021-03-24 19:00 | disposition home or self-care (01) ==
LOC: PT 13:00
PROVIDERS: PCP Family Medicine; Referring Provider Family Medicine; Visit Provider Family Medicine
DX: Z86.73 Personal history of transient ischemic attack (TIA), and cerebral infarction without residual deficits (principal)
CPT/HCPCS: 97110; 97162; 97166; 97530